=== PATIENT | male | born 1990 | race African-American/Black ===

== ENCOUNTER 2019-12-19 10:43 | Emergency (ER) | payer SELFPAY ==
[~2019-12-19] VITALS: Ht 182.9 cm; Wt 72.7 kg
[2019-12-19 10:54] VITALS: BP 118/73; TEMP 99.2
[2019-12-19 12:05] LABS: STREP SCREEN NEGATIVE
[2019-12-19 12:25] VITALS: PULSE 80
== END 2019-12-19 12:25 | disposition home or self-care (01) ==
LOC: COL.ER 10:43
PROVIDERS: Physician Assistant
DX: J02.9 Acute pharyngitis, unspecified (principal); F17.200 Nicotine dependence, unspecified, uncomplicated; Z20.828 Contact with and (suspected) exposure to other viral communicable diseases